=== PATIENT | male | born 1975 | race Caucasian/White ===

== ENCOUNTER → 2018-07-13 | Outpatient (CLI) | payer BC ==
--- NOTE | 2018-07-13 10:42 | KCIC ---
MR of the third finger HISTORY: Pain and edema. Bump for 18 months. TECHNIQUE: Routine multiplanar sequences are obtained. FINDINGS: There is an anterior soft tissue lesion at the third finger, towards its lateral aspect. This demonstrates fluid signal on T2-weighted images with a thin internal septation, or possibly 2 adjacent lesions. Mildly hyperintense T1 signal suggesting complex cystic content. Margins are well-defined. Measures 1.6 x 0.7 x 1.0 cm. This is located at the level of the mid shaft of the proximal third phalanx. This is in contact with the flexor tendon. No significant flexor tendon sheath fluid. The tendon itself demonstrates a normal appearance. No bone marrow edema, bone destruction or acute fracture. No significant joint effusion. There is mild cystic-type change at the third and fourth metacarpal heads, with a benign appearance. No significant joint effusion. IMPRESSION: Soft tissue lesion anterior to the proximal third finger most likely a complex cyst or ganglion. Giant cell tumor of the tendon sheath could also be considered but less likely. Ultrasound or pre and postcontrast MRI could better distinguish between cystic and solid nature if that would be helpful for clinical management. Electronically signed by: Sky Bowden MD (07/13/2018 10:39 AM) [id number]
== END | disposition home or self-care (01) ==
LOC: KCIC MRI 07:50
PROVIDERS: ATTEND Nurse Practitioner Family
DX: M79.642 Pain in left hand (principal); R93.6 Abnormal findings on diagnostic imaging of limbs
CPT/HCPCS: 73218

== ENCOUNTER → 2019-03-17 | Outpatient (CLI) | payer BC ==
--- NOTE | 2019-03-17 08:51 | KCIC ---
MRI Lumbar Spine without contrast History: Lumbago, left sciatica Technique: Multiplanar, multi sequential noncontrast MR imaging was performed of the lumbar spine. Comparison: March 23, 2014 Findings: Lumbar vertebral body stature and AP alignment are maintained. There is [id number] L5-S1 degenerative disc disease and mild disc desiccation L4-5 as seen previously. There are posterior annular tears at L4-5 and L5-S1. Conus terminates at the inferior aspect of L1. There is trace edema of the anterior superior corner of L3 now present. There is also trace endplate edema on the left at L5-S1 posteriorly likely reactive/degenerative in etiology. L1-L2: This level was not included on the axial images. Neural foramina and spinal canal are adequate. L2-L3: Neural foramina and spinal canal are adequate. L3-L4: There is mild buckling of the ligamentum flavum and mild prominence of posterior epidural fat centrally. Spinal canal and neural foramina are adequate. L4-L5: There is again shallow posterior protrusion greatest centrally about 2 to 3 mm AP. There is minimal buckling of the ligamentum flavum. There is very mild narrowing of the far left lateral recess as seen previously. Neural foramina are overall adequate. L5-S1: There is again disc osteophyte complex and bulge, near the descending S1 nerve roots without significant displacement or spinal stenosis as seen previously. There is mild facet degenerative change. There is again moderate left and ezdq-ku-[id number] right neural foramina compromise in part from disc osteophyte complex near the undersurfaces exiting L5 nerve roots bilaterally. Impression: 1. Findings are similar compared with the 2014 exam. There is again degenerative disc disease at L5-S1 and minimally at L4-5. There is no new significant lumbar spinal stenosis, very mild narrowing of the far left lateral recess at L4-5 and bulge at L5-S1 near the descending S1 nerve roots without displacement. There is moderate left and exst-ih-[id number] right neural foramina compromise. Electronically signed by: Christiano Chang MD (03/17/2019 8:48 AM) [facility]
== END | disposition home or self-care (01) ==
LOC: KCIC MRI 07:53
PROVIDERS: ATTEND Physical Medicine & Rehabilitation
DX: M51.37 Other intervertebral disc degeneration, lumbosacral region (principal); M48.07 Spinal stenosis, lumbosacral region; M51.26 Other intervertebral disc displacement, lumbar region; M25.78 Osteophyte, vertebrae
CPT/HCPCS: 72148

== ENCOUNTER 2019-12-02 12:39 | Emergency (ER) | payer BC ==
[~2019-12-02] VITALS: Ht 182.9 cm; Wt 104.0 kg
[2019-12-02] MEDS ORDERED: ONDANSETRON ODT 4 MG TAB.RAPDIS. PO ONE (13:30)
[2019-12-02] MEDS ORDERED: ASPIRIN 325 MG TABLET PO ONE (13:30)
[2019-12-02] MEDS ORDERED: NITROGLYCERIN SUBLINGUAL 0.4 MG BOTTLE OF 25. SL PRN (13:30)
[2019-12-02 14:03] LABS: BASO % 1 % (0-3); EOS % 2 % (0-3); HEMATOCRIT 44.4 % (39.0-53.0); HEMOGLOBIN 15.2 g/dL (13.0-17.5); LYMPH % 37 % (24-48); MEAN CORPUSCULAR HEMOGLOBIN 32 pg (25-35); MEAN CORPUSCULAR HGB CONC 34 g/dL (31-37); MEAN CORPUSCULAR VOLUME 94 fL (79-100); MONO # 0.3 x10^3/uL (0.0-1.1); MONO % 10 % (0-9); NEUT # 1.4 x10^3/uL (1.8-7.7); NEUT % 50 % (31-73); PLATELET COUNT 149 x10^3/uL (140-400); RED BLOOD COUNT 4.72 x10^6/uL (4.30-5.70); RED CELL DISTRIBUTION WIDTH 12.3 % (11.5-14.5); WHITE BLOOD COUNT 2.8 x10^3/uL (4.0-11.0)
[2019-12-02 14:13] LABS: CALCIUM 8.9 mg/dL (8.5-10.1); CREATININE 0.9 mg/dL (0.7-1.3); GFR 91.7; POTASSIUM 4.2 mmol/L (3.5-5.1)
[2019-12-02 14:14] LABS: PROTHROMBIN TIME PATIENT 12.2 SEC (11.7-14.0)
[2019-12-02 14:21] LABS: BILIRUBIN,URINE NEGATIVE (NEG); CLARITY,URINE CLEAR; COLOR,URINE YELLOW; NITRITE,URINE NEGATIVE (NEG); PH,URINE 5.5 (<5.0-8.0); PROTEIN,URINE NEGATIVE (NEG-TRACE); UROBILINOGEN,URINE 0.2 mg/dL (0.2 mg/dL)
--- NOTE | 2019-12-02 14:22 | RAD ---
PORTABLE CHEST 1V History: Shortness of air, cough for one week Comparison: None. Findings: Single view of the chest is submitted. There is no infiltrate, pneumothorax, or effusion. The pericardial cardiac silhouette is within normal limits in size. Impression: 1. There is no radiographic evidence of acute cardiopulmonary disease. Electronically signed by: Christiano Chang MD (12/02/2019 2:19 PM) [facility]
[2019-12-02 14:24] LABS: ALBUMIN/GLOBULIN RATIO 1.2 (1.0-1.7); MAGNESIUM 2.2 mg/dL (1.8-2.4); TOTAL BILIRUBIN 0.4 mg/dL (0.2-1.0); TOTAL PROTEIN 7.3 g/dL (6.4-8.2)
[2019-12-02 14:33] LABS: BACTERIA,URINE 0 /HPF (0-FEW); RBC,URINE 0 /HPF (0-2); WBC,URINE 0 /HPF (0-4)
[2019-12-02 14:37] LABS: BARBITURATES NEG (NEG); BENZODIAZEPINES NEG (NEG); CANNABINOIDS NEG (NEG); COCAINE NEG (NEG); METHADONE NEG (NEG); OPIATES NEG (NEG); PHENCYCLIDINE NEG (NEG)
[2019-12-02 14:39] LABS: AMPHETAMINE/METHAMPHETAMINE NEG (NEG)
[2019-12-02 16:00] VITALS: BP 125/67
[2019-12-02] MEDS ORDERED: ALBU2.5V8 IH (16:22)
--- NOTE | 2019-12-02 16:23 | PHYS DOC ---
Past Medical History Past Medical History: No Pertinent History Past Surgical History: No Surgical History Smoking Status: Never Smoker Alcohol Use: Heavy General Adult EDM: Chief Complaint: SHORTNESS OF BREATH HPI: HPI: Patient is a 44 year old male presenting today complaining of cough or shortness of breath for 5 days. Patient denies any fever. Review of Systems: Review of Systems: Constitutional: Denies fever or chills. [] Eyes: Denies change in visual acuity. [] HENT: Denies nasal congestion or sore throat. [] Respiratory: Reports cough and shortness of breath. [] Cardiovascular: Denies chest pain or edema. [] GI: Denies abdominal pain, nausea, vomiting, bloody stools or diarrhea. [] : Denies dysuria. [] Musculoskeletal: Denies back pain or joint pain. [] Integument: Denies rash. [] Neurologic: Denies headache, focal weakness or sensory changes. [] Psychiatric: Denies depression or anxiety. [] Heart Score: Risk Factors: Risk Factors: DM, Current or recent (<one month) smoker, HTN, HLP, family history of CAD, obesity. Risk Scores: Score 0 - 3: 2.5% MACE over next 6 weeks - Discharge Home Score 4 - 6: 20.3% MACE over next 6 weeks - Admit for Clinical Observation Score 7 - 10: 72.7% MACE over next 6 weeks - Early Invasive Strategies Current Medications: Current Medications Medications (Trade) Dose Ordered Sig/Steve Start Time Stop Time Status Last Admin Dose Admin Aspirin (Jermaine Aspirin) 325 mg 1X ONCE 12/02/19 13:30 12/02/19 13:34 DC 12/02/19 13:54 325 MG Nitroglycerin (Nitrostat) 0.4 mg PRN Q5MIN PRN 12/02/19 13:30 12/03/19 13:29 12/02/19 13:55 0.4 MG Ondansetron HCl (Zofran Odt) 4 mg 1X ONCE 12/02/19 13:30 12/02/19 13:34 DC 12/02/19 13:53 4 MG Allergies: Allergies: Allergies Coded Allergies Type Severity Reaction Last Updated Verified No Known Drug Allergies 12/02/19 No Physical Exam: PE: Constitutional: Well developed, well nourished, no acute distress, non-toxic appearance. [] HENT: Normocephalic, atraumatic, bilateral external ears normal, oropharynx moist, no oral exudates, nose normal. [] Eyes: PERRLA, EOMI, conjunctiva normal, no discharge. [] Neck: Normal range of motion, no tenderness, supple, no stridor. [] Cardiovascular:Heart rate regular rhythm, no murmur [] Lungs & Thorax: Bilateral breath sounds clear to auscultation [] Abdomen: Bowel sounds normal, soft, no tenderness, no masses, no pulsatile masses. [] Skin: Warm, dry, no erythema, no rash. [] Back: No tenderness, no CVA tenderness. [] Extremities: No tenderness, no cyanosis, no clubbing, ROM intact, no edema. [] Neurologic: Alert and oriented X 3, normal motor function, normal sensory function, no focal deficits noted. [] Psychologic: Affect normal, judgement normal, mood normal. [] Current Patient Data: Labs: Laboratory Tests Test 12/02/19 13:55 12/02/19 14:08 White Blood Count 2.8 x10^3/uL (4.0-11.0) L Red Blood Count 4.72 x10^6/uL (4.30-5.70) Hemoglobin 15.2 g/dL (13.0-17.5) Hematocrit 44.4 % (39.0-53.0) Mean Corpuscular Volume 94 fL (79-100) Mean Corpuscular Hemoglobin 32 pg (25-35) Mean Corpuscular Hemoglobin Concent 34 g/dL (31-37) Red Cell Distribution Width 12.3 % (11.5-14.5) Platelet Count 149 x10^3/uL (140-400) Neutrophils (%) (Auto) 50 % (31-73) Lymphocytes (%) (Auto) 37 % (24-48) Monocytes (%) (Auto) 10 % (0-9) H Eosinophils (%) (Auto) 2 % (0-3) Basophils (%) (Auto) 1 % (0-3) Neutrophils # (Auto) 1.4 x10^3/uL (1.8-7.7) L Lymphocytes # (Auto) 1.0 x10^3/uL (1.0-4.8) Monocytes # (Auto) 0.3 x10^3/uL (0.0-1.1) Eosinophils # (Auto) 0.0 x10^3/uL (0.0-0.7) Basophils # (Auto) 0.0 x10^3/uL (0.0-0.2) Prothrombin Time 12.2 SEC (11.7-14.0) Prothrombin Time INR 0.9 (0.8-1.1) Sodium Level 141 mmol/L (136-145) Potassium Level 4.2 mmol/L (3.5-5.1) Chloride Level 104 mmol/L (98-107) Carbon Dioxide Level 29 mmol/L (21-32) Anion Gap 8 (6-14) Blood Urea Nitrogen 9 mg/dL (8-26) Creatinine 0.9 mg/dL (0.7-1.3) Estimated GFR (Cockcroft-Gault) 91.7 BUN/Creatinine Ratio 10 (6-20) Glucose Level 97 mg/dL (70-99) Calcium Level 8.9 mg/dL (8.5-10.1) Magnesium Level 2.2 mg/dL (1.8-2.4) Total Bilirubin 0.4 mg/dL (0.2-1.0) Aspartate Amino Transferase (AST) 25 U/L (15-37) Alanine Aminotransferase (ALT) 27 U/L (16-63) Alkaline Phosphatase 37 U/L (46-116) L Troponin I Quantitative < 0.017 ng/mL (0.000-0.055) IE-Apj-V-Type Natriuretic Peptide 25 pg/mL (0-124) Total Protein 7.3 g/dL (6.4-8.2) Albumin 4.0 g/dL (3.4-5.0) Albumin/Globulin Ratio 1.2 (1.0-1.7) Lipase 117 U/L (73-393) Thyroid Stimulating Hormone (TSH) 1.074 uIU/mL (0.358-3.74) Urine Collection Type Unknown Urine Color Yellow Urine Clarity Clear Urine pH 5.5 (<5.0-8.0) Urine Specific [place] 1.015 (1.000-1.030) Urine Protein Negative mg/dL (NEG-TRACE) Urine Glucose (UA) Negative mg/dL (NEG) Urine Ketones (Stick) Negative mg/dL (NEG) Urine Blood Negative (NEG) Urine Nitrite Negative (NEG) Urine Bilirubin Negative (NEG) Urine Urobilinogen Dipstick 0.2 mg/dL (0.2 mg/dL) Urine Leukocyte Esterase Negative (NEG) Urine RBC 0 /HPF (0-2) Urine WBC 0 /HPF (0-4) Urine Squamous Epithelial Cells Few /LPF Urine Bacteria 0 /HPF (0-FEW) Urine Mucus Marked /LPF Urine Opiates Screen Neg (NEG) Urine Methadone Screen Neg (NEG) Urine Barbiturates Neg (NEG) Urine Phencyclidine Screen Neg (NEG) Urine Amphetamine/Methamphetamine Neg (NEG) Urine Benzodiazepines Screen Neg (NEG) Urine Cocaine Screen Neg (NEG) Urine Cannabinoids Screen Neg (NEG) Urine Ethyl Alcohol Neg (NEG) Laboratory Tests 12/02/19 13:55 Laboratory Tests 12/02/19 13:55 Vital Signs: Vital Signs Date Time Temp Pulse Resp B/P (MAP) Pulse Ox O2 Delivery O2 Flow Rate FiO2 12/02/19 13:58 98.5 53 18 156/89 (111) 98 Room Air 98.5 EKG: EKG: [] Radiology/Procedures: Radiology/Procedures: []PROCEDURE: PORTABLE CHEST 1V PORTABLE CHEST 1V History: Shortness of air, cough for one week Comparison: None. Findings: Single view of the chest is submitted. There is no infiltrate, pneumothorax, or effusion. The pericardial cardiac silhouette is within normal limits in size. Impression: 1. There is no radiographic evidence of acute cardiopulmonary disease. Electronically signed by: Damir Nice MD (12/02/2019 2:19 PM) [facility] DICTATED and SIGNED BY: DAMIR NICE MD DATE: 12/02/19 1419 Course & Med Decision Making: Course & Med Decision Making Pertinent Labs and Imaging studies reviewed. (See chart for details) This is a 44-year-old male patient presenting to the ED today with cough and shortness of breath for 5 days. Chest x-ray is negative for pneumonia. CBC with a WBC of 2.8, CMP with no acute findings. Urine analysis is negative, EKG and troponin are normal. Patient was tested for COVID-19. Will be called with results. Recommended he quarantine some soft. Good hand hygiene also recommended. Dragon Disclaimer: Dragon Disclaimer: This electronic medical record was generated, in whole or in part, using a voice recognition dictation system. Departure Departure Impression: Primary Impression: Cough Additional Impressions: Shortness of breath Person under investigation for COVID-19 Disposition: 01 DC HOME SELF CARE/HOMELESS Condition: STABLE Referrals: TANYA SON (PCP) follow up with your doctor in one week Patient Instructions: Cough, Adult, Shortness of Breath Additional Instructions: You were evaluated in the emergency room, you were tested for COVID-19. Quarantine yourself until you hear from us with the results. Maintain good an tigen. Follow-up with your doctor in 1 week Scripts Albuterol Sulfate (Proair Hfa) 8.5 Gm Hfa.aer.ad 2 PUFF IH PRN Q4-6HRS PRN for wheezing for 21 Days, #1 INHALER 0 Refills Prov: REBECCA ANDRES APRN 12/02/19 REBECCA ANDRES APRN Dec 02, 2019 16:23
--- NOTE | 2019-12-05 13:22 | NUR ---
IP: Informed pt of positive COVID test and need to quarantine for 14 days. Pt verbalized understanding.
== END 2019-12-02 16:34 | disposition home or self-care (01) ==
LOC: ER 12:39
DX: U07.1 COVID-19 (principal); R05 Cough; R06.02 Shortness of breath; F10.10 Alcohol abuse, uncomplicated
CPT/HCPCS: 36415; 71045; 80053; 80307; 81001; 83690; 83735; 83880; 84443; 84484; 85025; 85610; 99285; C9803; U0003